=== PATIENT | male | born 1940 | race Caucasian/White ===

== ENCOUNTER → 2018-05-17 | Outpatient (CLI) | payer OTHER ==
[~2018-05-17] VITALS: Ht 175.3 cm; Wt 131.5 kg
[~2018-05-17] MED LIST: ALLOPURINOL 10100 M1 PO; AMBIEN 10 MG TA10 MG PO; APAP W/CODEINE1 TA2 PO; ASPIRIN EC81 M1 PO; ATENOLOL 100MG100 M2 PO; CELEBREX 200 M200 M1 PO; CENTRUM SILVER1 EAC4 PO; COREG6.25 MG PO; DEMADEX20 MG PO; DUREZOL5 ML OP; DUREZOL5 ML OPHTHALMIC; EYE OPHTHALMIC; FERROUS SULFATE PO; FLUOXETINE HCL20 M1 PO; FLUOXETINE PO; FUROSEMIDE 40 M40 M1 PO; ILEVRO1.7 ML OP; K-DUR 20 MEQ T20 MEQ PO; LASIX 80 MG TAB80 MG PO; LIPITOR 10 MG10 M1 PO; LISINOPRIL10 MG PO; NEURONTIN 400400 M1 PO; POLYMYXIN B/TMP10 ML OP; PRAMIPEXOLE DI0.5 MG PO; PREVACID30 MG PO; SPIRONOLACTONE25 M1 PO; TRAMADOL ER PO; TRIMETHOPRIM /P10 M1 OP; VITAMIN C1000 MG PO; VITAMIN D-32000 UNIT PO
--- NOTE | 2018-05-17 11:03 | P ---
[facility] [place] [address] PROCEDURE REPORT Name: LINWOOD MORENO Room #: REG LILLY Guan.#: [id number] Admission: 05/17/18 Attend Phys: Kevin Mason MD Discharge: Date of : 40 Report #: [id number] THIS REPORT FOR: //name// CC: Senthil Mason OUTPATIENT UPPER ENDOSCOPY REPORT BRIEF HISTORY: The patient is a 78-year-old male with recurrent dysphagia, primarily for pills. He has a prior history of esophageal dilation. PREOPERATIVE DIAGNOSIS: Recurrent dysphagia. POSTOPERATIVE DIAGNOSES: 1. Moderate erythematous gastritis. 2. Dysphagia for solids. MEDICATIONS: Deep sedation with propofol per anesthesia. SPECIMEN: None. ESTIMATED BLOOD LOSS: None. PROCEDURE: EGD with biopsy and Moffett dilation. FINDINGS: Prior to propofol sedation, the procedure of upper endoscopy was discussed with the patient as well as potential risks, benefits and complications. He indicates he understands and desires to proceed. DESCRIPTION OF PROCEDURE: With the patient in the left lateral decubitus position, the Olympus video endoscope was inserted in the cervical esophagus under direct vision without difficulty. Examination of this organ through its entire length revealed normal esophageal mucosa down the squamocolumnar junction. The squamocolumnar junction was visualized and noted to be unremarkable. There was no evidence of Maya mucosa, strictures, masses or hiatus hernia. Scope was advanced in the stomach, which was examined on end views as well as retroflexed views. He had a diffuse erythematous gastritis. There were no ulcers, erosions or bleeding lesions. Upon retroflexion, no mass lesions were seen in the cardia. He did have scattered polyps in the body of the stomach, consistent with retirement use of PPIs. They have typical hyperplastic appearance. The largest was about 8 mm. It is noted that previous biopsies were negative for H. pylori and these were not repeated today. Pylorus, duodenal bulb and postbulbar duodenal sweep were all inspected and noted to be unremarkable. At that point, the scope was slowly withdrawn and careful circumferential views confirmed the above findings. The patient tolerated the procedure well. [facility] [address] [place] [address] PROCEDURE REPORT Name: JOSHLINWOOD Room #: REG [facility].#: [id number] Admission: 05/17/18 Attend Phys: Kevin Mason MD Discharge: Date of : 40 Report #: [id number] Subsequently, he was dilated with passage of a 52-Colombian Moffett dilator. There was no resistance. CONDITION OF THE PATIENT UPON DISCHARGE: Following the procedure, the patient was drowsy and prepared for colonoscopy. INSTRUCTIONS TO THE PATIENT AND FAMILY AT THE TIME OF DISCHARGE: We will advise him to use his PPI on an as-needed basis if possible rather than on a daily basis. He is to return for dilation as needed. We will proceed with colonoscopy at this time. <ELECTRONICALLY SIGNED> By: Kevin Mason MD 05/17/18 1103 [id number] [id number] Kevin Mason MD /nt
--- NOTE | 2018-05-17 11:03 | P ---
[facility] [place] [address] [place] [address] PROCEDURE REPORT Name: LINWOOD MORENO Room #: REG LILLY Carleen.#: [id number] Admission: 05/17/18 Attend Phys: Kevin Mason MD Discharge: Date of : 40 Report #: [id number] THIS REPORT FOR: //name// CC: CHAPARRITA Mason BRIEF HISTORY: The patient is a 78-year-old male with history of colon adenoma, for high risk screening. PREOPERATIVE DIAGNOSIS: High risk screening colonoscopy. POSTOPERATIVE DIAGNOSES: 1. Colon polyps. 2. Moderate internal hemorrhoids. MEDICATIONS: Deep sedation with propofol per anesthesia. SPECIMENS: 1. Diminutive cecal polyp. 2. Diminutive polyp, hepatic flexure. ESTIMATED BLOOD LOSS: 3 mL. PROCEDURE: Colonoscopy to cecum and terminal ileum with biopsy. FINDINGS: Prior to propofol sedation, procedure of colonoscopy discussed with the patient as well as potential risks and its complications. He indicates he understands and desires to proceed. DESCRIPTION OF PROCEDURE: With the patient in left lateral decubitus position, digital examination was completed, which revealed no abnormalities. Subsequently, the Olympus video colonoscope was introduced in the rectum, advanced under direct vision to the cecum. Done with minimal difficulty. The cecum was identified by the ileocecal valve and the appendiceal orifice. I was able to visualize the distal segment of terminal ileum, which was inspected and noted to be unremarkable. At that point, the scope was slowly withdrawn and careful circumferential views were obtained. Upon slow withdrawal of the scope, the prep was good. The mucosa was within normal limits, normal vascular pattern, normal light reflex. As we withdrew the scope, a diminutive polyp was seen in the cecum, removed by biopsy. Another diminutive polyp was seen and removed by biopsy from the hepatic flexure. The scope was further withdrawn. The mucosa throughout the remainder of the colon was within normal limits. No additional neoplastic lesions were seen. The scope was withdrawn in the rectum. Upon retroflexion, moderate internal hemorrhoids were seen. Scope was withdrawn. The patient tolerated the procedure well. [address] [address] PROCEDURE REPORT Name: MARIA ELENA MORENOBY Room #: REG [facility] Freida.#: [id number] Admission: 05/17/18 Attend Phys: Kevin Mason MD Discharge: Date of : 40 Report #: [id number] CONDITION OF THE PATIENT UPON DISCHARGE: Following procedure, the patient drowsy and arousable. He will be discharged home when fully ambulatory. INSTRUCTIONS TO THE PATIENT AND FAMILY AT THE TIME OF DISCHARGE: We will follow up on the path of the polyp. It one or both polyps are adenomas, he should return in 5 years; if neither are adenomas, typical recommendation is 10 years. However, at this point in life, a followup colon exam in 10 years may be of minimal benefit to him. He will return to the care of Dr. Chaparrita Beasley, return to see me as needed. Last colonoscopy was 5 years ago. Withdrawal time from the cecum was 12 minutes and 3 seconds. <ELECTRONICALLY SIGNED> By: Kevin Mason MD 05/17/18 1103 [id number] 0957 Kevin Mason MD /nt
--- NOTE | 2018-05-18 16:07 | PATH ---
[facility] [place] [address] PATHOLOGY RPT PROCEDURE Name: NORBERTO CORONADO Room #: REG LILLY Olga.[place].#: [id number] Admission: 05/17/18 Date of : 40 Discharge: Report #: [id number] Path Case #: [id number] [facility] Accession Number: [id number] . 01 Material submitted: . PART A: BIOPSY POLYP AT CECUM PART B: BIOPSY POLYP AT HEPATIC FLEXURE . 01 Clinical history: . Pre-OP DX: HX, polyp, dysphagia Post-OP DX: Colon polyp, hemorrhoids . 02 Diagnosis: A. Polyp, at cecum, endoscopic biopsy: - Compatible with an inflammatory polyp associated with reactive hyperplastic changes. - Negative for dysplasia. . B. Polyp, at hepatic flexure, endoscopic biopsy: - Tubular adenoma. - Negative for high-grade dysplasia. . (IUV:dean; 05/18/2018) MBR/05/18/2018 . 02 Electronically signed: . Francia Holly MD, Pathologist NPI- [id number] . 01 Gross description: . A. Received in formalin labeled "Norberto Coronado, RAHEL polyp at cecum," are 2 segments of james soft tissue measuring 0.7 x 0.2 x 0.2 cm in aggregate dimensions and ranging from 0.3 to 0.4 cm in maximum dimension. The specimen is submitted entirely in cassette A1. . B. Received in formalin labeled "Norberto Coronado, BX polyp hepatic flexure," are 3 segments of james soft tissue measuring 0.6 x 0.4 x 0.1 cm in aggregate dimensions and ranging from 0.3 to 0.4 cm in maximum dimension. The specimen is submitted entirely in cassette B1. (TSD; 05/17/2018) TOB/TOB . 02 Pathologist provided ICD-10: K51.40, D12.3 . 02 CPT . [id number], [id number] [address] [address] PATHOLOGY RPT PROCEDURE Name: NORBERTO CORONADO Room #: REG [facility].#: [id number] Admission: 05/17/18 Date of : 40 Discharge: Report #: [id number] Path Case #: [id number] Specimen Comment: A courtesy copy of this report has been sent to Specimen Comment: [phone], . Specimen Comment: Report sent to and Performed at: [address] [facility], [place], [place] [id number] MD Jm Marin MD Phone: [phone] Performed at: [address] [id number] MD Francia Holly MD Phone: [phone]
== END | disposition home or self-care (01) ==
LOC: GI 06:20
DX: Z12.11 Encounter for screening for malignant neoplasm of colon (principal); Z86.010 Personal history of colon polyps; D12.3 Benign neoplasm of transverse colon; K51.40 Inflammatory polyps of colon without complications; K64.8 Other hemorrhoids; K29.70 Gastritis, unspecified, without bleeding; R13.19 Other dysphagia; K31.7 Polyp of stomach and duodenum; K21.9 Gastro-esophageal reflux disease without esophagitis; I10 Essential (primary) hypertension; E78.5 Hyperlipidemia, unspecified; E11.9 Type 2 diabetes mellitus without complications; D64.9 Anemia, unspecified; Z87.442 Personal history of urinary calculi; Z85.828 Personal history of other malignant neoplasm of skin; Z98.41 Cataract extraction status, right eye; Z98.42 Cataract extraction status, left eye; Z87.891 Personal history of nicotine dependence; Z79.899 Other long term (current) drug therapy; Z87.19 Personal history of other diseases of the digestive system; Z79.82 Long term (current) use of aspirin
CPT/HCPCS: 62110; 62900

== ENCOUNTER → 2020-03-21 | Outpatient (CLI) | payer OTHER ==
[~2020-03-21] MED LIST changes: +FEROSUL325 M1 PO; +FUROSEMIDE 20 M20 MG PO; -VITAMIN D-32000 UNIT PO; +VITAMIN D350 MC3 PO
== END ==
LOC: LAB 07:52
PROVIDERS: ATTEND Orthopaedic Surgery
DX: Z01.812 Encounter for preprocedural laboratory examination (principal); Z20.828 Contact with and (suspected) exposure to other viral communicable diseases

== ENCOUNTER → 2020-08-16 | Outpatient (CLI) | payer OTHER ==
[~2020-08-16] MED LIST changes: +MAGNESIUM400 M1 PO; +TERBINAFINE HC250 MG PO
[2020-08-16 11:16] LABS: HEMATOCRIT 37.2 % (42.0-52.0); HEMOGLOBIN 12.3 gm/dL (14.0-18.0); MCH 29.5 pg (26.0-34.0); MCHC 33.1 g/dL (28.0-37.0); MCV 89.1 fL (80.0-100.0); RBC 4.18 mil/uL (4.50-6.00); RDW 13.6 % (10.5-14.5); WBC 6.7 thou/uL (4.0-11.0)
[2020-08-16 11:20] LABS: ALBUMIN 3.4 g/dL (3.4-5.0); CALCIUM 9.6 mg/dL (8.5-10.1); CREATININE 1.8 mg/dL (0.7-1.3); POTASSIUM 4.1 mmol/L (3.5-5.1)
[2020-08-16 11:22] LABS: INR 0.98; PROTIME 10.7 Seconds (9.3-11.4)
[2020-08-16 15:04] LABS: URINE BILIRUBIN NEGATIVE (Negative); URINE BLOOD NEGATIVE (Negative); URINE CLARITY CLEAR; URINE COLOR YELLOW; URINE GLUCOSE-RANDOM* NEGATIVE (Negative); URINE KETONES NEGATIVE (Negative); URINE LEUKOCYTES-REFLEX NEGATIVE (Negative); URINE NITRITE-REFLEX NEGATIVE (Negative); URINE PROTEIN (DIPSTICK) NEGATIVE (Negative); URINE SPECIFIC GRAVITY 1.015 (1.005-1.035); URINE UROBILINOGEN 0.2 E.U./dl (0.2-1.0)
[2020-08-17 05:16] LABS: GLYCOHEMOGLOBIN (HGB A1C) 7.2 % (4.8-5.6)
== END ==
LOC: LAB 08:27
PROVIDERS: ATTEND Orthopaedic Surgery
DX: Z01.812 Encounter for preprocedural laboratory examination (principal); Z20.822 Contact with and (suspected) exposure to COVID-19

== ENCOUNTER 2020-08-21 06:14 | Observation (INO) | payer OTHER ==
[~2020-08-21] VITALS: Ht 177.8 cm; Wt 127.0 kg
[2020-08-21] VITALS (10 sets, daily range): BP systolic 100–132; BP diastolic 56–68
--- NOTE | ~2020-08-21 | O ---
[facility] [place] [address] [place] [address] OPERATIVE REPORT Name: LINWOOD MORENO Room #: 150-2 [facility] M.R.#: [id number] Admission: 08/21/20 Attend Phys: Sushil Galeana MD Discharge: Date of : 40 Report #: [id number] THIS REPORT FOR: cc: Senthil Beasley MD, David A. MD Abraham,Sushil Al MD ~ DATE OF SERVICE: 08/21/2020 PREOPERATIVE DIAGNOSIS: Left hip osteoarthritis. POSTOPERATIVE DIAGNOSIS: Left hip osteoarthritis. PROCEDURE: Left total hip arthroplasty. SURGEON: Sushil Galeana MD. DIRECTOR OF DIRECT MARKETING: Autumn Lenz PA-C. INDICATIONS FOR DIRECTOR OF DIRECT MARKETING: Throughout the case, extensive retraction and manipulation of the hip including dislocation and reduction was required. This was afforded to me by my curriculum assistant. ANESTHESIA: LMA. IMPLANTS: Hernández and Nephew size 17 high offset Synergy cemented stem, a size 58 R3 acetabular cup with 1 acetabular screw, a size 40+0 cobalt chrome head and an Accord cerclage cable for prophylactic fixation. ESTIMATED BLOOD LOSS: 100 mL. COMPLICATIONS: None. SPECIMENS: None. CONDITION UPON LEAVING THE OPERATING ROOM: Stable. INDICATIONS FOR PROCEDURE: The patient is an 80-year-old gentleman with severe left hip osteoarthritis. He had failed conservative measures for this and after discussion with him, he elected for left total hip arthroplasty. DESCRIPTION OF PROCEDURE: Risks, benefits, alternatives, complications were discussed in detail with the patient including but not limited to risk of anesthesia, risk of damage to nerves, arteries, blood vessels, risk for infection, bleeding, risk for continued hip pain, leg length discrepancy, instability and need for reoperation. Informed consent was obtained from the [facility] [address] [address] OPERATIVE REPORT Name: LINWOOD MORENO Room #: 150-2 [facility] M.[place].#: [id number] Admission: 08/21/20 Attend Phys: Sushil Galeana MD Discharge: Date of : 40 Report #: [id number] patient. Left hip was appropriately marked in the preoperative holding area. IV Ancef was given for preoperative antibiotics. He was brought to the operating room and placed in the supine position on the operating room table. LMA anesthesia was induced without complication. He was then placed in the right lateral decubitus position with the left hip uppermost. Left hip and lower extremity were prepped and draped in normal sterile fashion. Timeout was performed properly identifying the patient and procedure as well as the instrumentation and implants. All in the operating room were in agreement. Standard posterior approach to the hip was made with 10 blade through the skin. Dissection was taken down sharply to the fascia and deep flaps were developed anteriorly and posteriorly. Fresh 10 blade was used to make a fascial incision. Charnley retractor was placed. Piriformis tendon was identified, tagged and taken down with Bovie. Short external rotators were also taken down with Bovie cautery. Capsulotomy was made and capsule ends were tagged for later repair. The hip was dislocated and there was extensive osteoarthritic change of the femoral head. Femoral neck cut was made 1 cm proximal to lesser trochanter based on preoperative templating and the femoral head was removed. Deep acetabular retractors were placed. Labrum was removed sharply. Pulvinar was removed with Bovie cautery. Acetabulum was then sequentially reamed up to a size 58, at which point, there was excellent bleeding cancellous bone. A size 57 trial cup was placed, found to have a good fit. Final size 58 R3 acetabular cup was placed and seated. One acetabular screw was placed for backup fixation and a polyethylene liner for a size 40 head was placed. Attention was turned to the femur. This was reamed and broached up to a size 18, at which point, the 18 broach was not stable. It was decided we would need a cement in a size 17 stem. The 8 inch broach was trialed with a high offset neck and a 40+0 head. Hip was reduced, taken through range of motion, found to be stable, found to have equal leg lengths. Broach was removed. A single Accord cable was placed prophylactically around the proximal femur. The femoral canal was then prepped in standard fashion and a size 17 high offset Synergy stem was cemented in place using standard cementation techniques. After the cement cured, this was trialed with a 40+0 head. Hip was reduced, taken through range of motion, found to be stable, found to have equal leg lengths. Hip was dislocated. A final size 40+0 cobalt chrome head was placed. Hip was reduced, taken through range of motion, found to be stable, found to have equal leg lengths. Wound was thoroughly irrigated with normal saline. A periarticular injection consisting of morphine, ropivacaine, epinephrine, Toradol was placed around the hip joint capsule. A gram of vancomycin was placed deep in the joint capsule and piriformis were repaired with 0 FiberWire. Fascia was closed with 0 Vicryl, skin was closed with 2-0 Vicryl, skin staple and a DUNIA dressing was applied. The patient [address] [address] OPERATIVE REPORT Name: LINWOOD MORENO Room #: 150-2 [facility] Vicki#: [id number] Admission: 08/21/20 Attend Phys: Sushil Galeana MD Discharge: Date of : 40 Report #: [id number] tolerated this procedure well and went to recovery room under care of anesthesia postoperatively. By: 0955 [id number] Sushil Galeana MD /nt
--- NOTE | 2020-08-21 14:29 | NUR ---
Pt transferred from PACU. Pt a&ox4. Dressing c/d/i. Pain controlled. 2L O2. Pt worked with physical therapy. PEDRO hose and SCDs in place. Ice pack in place. Admission completed. Family at bedside. IVF and IV antibiotics infusing. Call light within reach. Fall precautions in place. Will continue to monitor.
--- NOTE | 2020-08-22 05:20 | NUR ---
ASSUMED PT CARE AT 1900.PT ALERT AND COPERATIVE WITH CARE.PT C/O OF NOT URINATING ,WAS ABLE TO SO FAR.PT WITH HX OF SLEEP APNEA,NOT ABLE TO KRIS CPAP,SLEPT WITH 2L/NC.PT CONT ON IVF AND IV ABX.PT ABLE TO MAKE HIS NEEDS KNOWN.CALL LIGHT WITHIN REACH.
[2020-08-22 05:51] LABS: HEMATOCRIT 27.7 % (42.0-52.0); HEMOGLOBIN 9.3 gm/dL (14.0-18.0); MCHC 33.5 g/dL (28.0-37.0); MCV 89.5 fL (80.0-100.0); RBC 3.1 mil/uL (4.50-6.00); RDW 13.3 % (10.5-14.5); WBC 9.4 thou/uL (4.0-11.0)
[2020-08-22 07:40] VITALS: BP 113/62
--- NOTE | 2020-08-22 08:01 | NUR ---
ASSESSMENT: CM REVIEWED CHART AND MET WITH PATIENT AT THE BEDSIDE. PT IS S/P TOTAL HIP REPLACEMENT. PT REPORTS THAT HE LIVES IN A HOUSE WITH HIS SON ELDON. PT REPORTS HE HAS ABOUT 5 STEPS WITH HANDRAILS TO ENTER THE HOME AND HIS BEDROOM IS ON THE [place]. PT REPORTS THAT HE HAS 2 CANES, A WALKER, AND QUAD CANE IF NEEDED. PT REPORTS THAT HE ALREADY HAS OUTPATIENT THERAPY ARRANGED TO BEGIN ON THURSDAY. PT REPORTS HE HAS A CPAP AT HOME BUT DOES NOT USE IT. CM DISCUSSED ROLE. PT DOES NOT ANTICIPATE HAVING ANY NEEDS FROM CM PRIOR TO DISCHARGE.
--- NOTE | 2020-08-22 13:47 | NUR ---
ON-GOING ASSESSMENT: CM REVIEWED CHART. POSSIBLE PLANS OF DISCHARGE TODAY. PT DECLINES HAVING ANY NEEDS FROM CM. OUTPATIENT THERAPY IS ALREADY ARRANGED. CASE CLOSED.
[2020-08-22 15:34] VITALS: BP 113/62
--- NOTE | 2020-08-22 16:06 | NUR ---
Assumed pt care at 7am.Pt in and out of bed with assist.Assessment completed. Vss.Therapist here to see pt x2 for dc home recommendation.Pt later seen by Delfin Marble Machine Operator and dc order noted.Pain med given for left hip with relief.Dc summary compile ad reviewed with pt and son.At 1610,pt dc home in with accompanied by corporate director of pharmacy.
== END 2020-08-22 17:43 ==
LOC: OR 06:14 → TBA 06:14 → OR 10:19 → EDSTATUS 10:29 → PRE 10:35 → 4S 10:39 → EDSTATUS 11:08 → OR 11:11 → 4S 16:27
PROVIDERS: ADMIT Orthopaedic Surgery; ATTEND Orthopaedic Surgery
DX: M16.12 Unilateral primary osteoarthritis, left hip (principal); M17.12 Unilateral primary osteoarthritis, left knee; Z79.899 Other long term (current) drug therapy
CPT/HCPCS: 50010; 50101; 50382; 50414; 51057; 51225; 51226; 51412; 53000; 53078; 53367; 56524; 56528; 56530; 57095; 57103; 57496; 57978; 57979; 62110; 62900; 70005